=== PATIENT | female | born 1960 | race Caucasian/White ===

== ENCOUNTER 2017-03-09 08:59 | Emergency (ER) | payer BC ==
[2017-03-09 09:40] VITALS: BP 105/63
--- NOTE | 2017-03-09 09:51 | UC ---
Respiratory Complaint HPI <Gali Fermin - Last Filed: 03/09/17 09:53> - HPI Summary HPI Summary: worsening cough over the past week---has wosening buring in chest with cough and cough that is not resolving with Robitussin and increase fluids - History of Current Complaint Hx Obtained From: Patient Hx Last Menstrual Period: 3 years ago. ?: No Onset/Duration: Gradual Onset, Lasting Days - 7, Worse Since - getting worse daily Timing: Constant Severity Initially: Mild Severity Currently: Moderate Pain Intensity: 6 Pain Scale Used: 0-10 Numeric Character: Cough: Nonproductive Aggravating Factors: Nothing Alleviating Factors: Nothing Associated Signs And Symptoms: Positive: Pleuritic Chest Pain, URI, Nasal Congestion, Sinus Discomfort <Nichole Hussein - Last Filed: 03/09/17 10:01> - History of Current Complaint Chief Complaint: UCRespiratory Stated Complaint: SORE THROAT COUGH CONGESTION Time Seen by Provider: 03/09/17 09:37 - Allergies/Home Medications Allergies/Adverse Reactions: Allergies Allergy/AdvReac Type Severity Reaction Status Date / Time Penicillins [PCN] Allergy Severe Rash/fever Verified 03/09/17 09:06 PMH/Surg Hx/FS Hx/Imm Hx Previously Healthy: No Endocrine History: Hypothyroidism Other History Of: Negative For: HIV, Hepatitis B, Hepatitis C - Surgical History Surgical History: Yes Surgery Procedure, Year, and Place: - Family History Known Family History: Positive: None, Diabetes - Social History Occupation: Employed Full-time Lives: With Family Alcohol Use: Rare Substance Use Type: None Smoking Status (MU): Never Smoked Tobacco - Immunization History Most Recent Influenza Vaccination: n/a Most Recent Tetanus Shot: <5 yrs Most Recent Pneumonia Vaccination: n/a <Nichole Hussein - Last Filed: 03/09/17 10:01> Review of Systems All Other Systems Reviewed And Are Negative: Yes <Gali Fermin - Last Filed: 03/09/17 09:53> Constitutional: Fever, Chills, Fatigue Skin: Negative Eyes: Negative ENT: Sore Throat, Nasal Discharge, Sinus Congestion, Sinus Pain/Tenderness Respiratory: Cough Cardiovascular: Negative Gastrointestinal: Negative Genitourinary: Negative Motor: Negative Neurovascular: Negative Musculoskeletal: Negative Neurological: Negative Psychological: Negative Is Patient Immunocompromised?: No All Other Systems Reviewed And Are Negative: Yes <Nichole Hussein - Last Filed: 03/09/17 10:01> Physical Exam Triage Information Reviewed: Yes Vital Signs: Initial Vital Signs Temp 99 F 03/09/17 09:07 Pulse 69 03/09/17 09:07 Resp 16 03/09/17 09:07 BP 105/63 03/09/17 09:07 Pulse Ox 100 03/09/17 09:07 <Gali Fermin - Last Filed: 03/09/17 09:53> Triage Information Reviewed: Yes Appearance: Well-Nourished, Ill-Appearing, Pain Distress Vital Signs: Initial Vital Signs Temp 99 F 03/09/17 09:07 Pulse 69 03/09/17 09:07 Resp 16 03/09/17 09:07 BP 105/63 03/09/17 09:07 Pulse Ox 100 03/09/17 09:07 Vital Signs Reviewed: Yes Eye Exam: Normal Eyes: Positive: Conjunctiva Clear ENT Exam: Normal ENT: Positive: Normal ENT inspection, Pharyngeal erythema, TMs normal. Negative : Nasal congestion, TM bulging, Tonsillar swelling, Tonsillar exudate, Trismus, Muffled voice, Hoarse voice, Dental tenderness, Sinus tenderness, Uvula midline Dental Exam: Normal Neck exam: Normal Neck: Positive: Supple, Nontender, No Lymphadenopathy Respiratory Exam: Normal Respiratory: Positive: Chest non-tender, Lungs clear, Normal breath sounds, No respiratory distress, No accessory muscle use Cardiovascular Exam: Normal Cardiovascular: Positive: RRR, No Murmur, Pulses Normal, Brisk Capillary Refill Musculoskeletal Exam: Normal Musculoskeletal: Positive: Strength Intact, ROM Intact, No Edema Neurological Exam: Normal Neurological: Positive: Alert, Muscle Tone Normal Psychological Exam: Normal Skin Exam: Normal <Nichole Hussein - Last Filed: 03/09/17 10:01> UC Diagnostic Evaluation - Laboratory O2 Sat by Pulse Oximetry: 100 Diagnostic Studies Comment: RST (-) <Nichole Hussein - Last Filed: 03/09/17 10:01> Respiratory Course/Dx - Course Course Of Treatment: Zithromax, Robitussin and Codiene, Albuteol, increase fluids, follow with pcp prn - Differential Dx/Diagnosis Provider Diagnoses: Bronchitis with Bronchospastic cough <Nichole Hussein Last Filed: 03/09/17 10:01> Discharge <Gali Fermin - Last Filed: 03/09/17 09:53> <Nichole Hussein - Last Filed: 03/09/17 10:01> - Discharge Plan Condition: Stable Disposition: HOME Prescriptions: Albuterol HFA INHALER* [Ventolin HFA Inhaler*] 2 puff INH Q6H PRN #1 mdi PRN Reason: cough Azithromycin TAB* [Zithromax TAB (Z-MIGEL) 250 mg #6 tabs] 2 tab PO .TODAY, THEN 1 DAILY #1 migel Guaifenesin-Codeine [Guaiatussin AC] 5 ml PO Q6H PRN #60 ml MDD 20 ml PRN Reason: Cough Patient Education Materials: Acute Bronchitis (ED), Bronchospasm (ED) Forms: *Work Release Referrals: Jocelyn Escobedo MD [Primary Care Provider] - 1 Week Attestation Statement User Type: Provider - I was available for consult. This patient was seen by the CHAPARRITA. The patient was not presented to, seen by, or examined by me. -Dennyj <Gali Fermin - Last Filed: 03/09/17 09:53>
== END 2017-03-09 10:02 | disposition home or self-care (01) ==
LOC: UCEAST 08:59
DX: J40 Bronchitis, not specified as acute or chronic (principal); R05 Cough
CPT/HCPCS: 87651; 99212; G0463

== ENCOUNTER 2017-04-16 10:25 | Day surgery (SDC) | payer BC ==
[~2017-04-16 10:25] MED LIST: Buffered Lidocaine 0.9% SYRIN* 5 ML/SYR SYRINGE INTRADERM ONE; DiMENhydriNATE IV* 50 MG/ML VIAL IV PUSH PRN; Famotidine IV* 10 MG/ML 2 ML (20 mg) IV ONE; Morphine INJ* 2 MG/ML 1 ML CARPUJECT IV PRN; PROCHLORPERAZINE INJ 5 MG/ML 2 ML VIAL IV PRN; oxyCODONE/Acetamin 5/325 MG* TAB PO PRN
[2017-04-16] MEDS ORDERED: Famotidine IV* 10 MG/ML 2 ML (20 mg) ONE (11:14)
[2017-04-16] MEDS ORDERED: Clindamycin 900 MG IVPREMIX(* 900 MG/50 ML SDV IV ONE (11:14)
[2017-04-16] MEDS ORDERED: fentaNYL* 50 MCG/ML 2 ML VIAL (100 MCG VIAL) ONE ×2 (12:16→14:23)
[2017-04-16] MEDS ORDERED: KETAMINE HCL* 50 MG/ML 10 ML VIAL ONE (12:16)
[2017-04-16] MEDS ORDERED: Midazolam* 1 MG/ML 10 ML VIAL (10 MG) ONE (12:16)
[2017-04-16] MEDS ORDERED: Lidocaine 1% MPF wEPI 200,000* 30 ML SDV ONE (12:45)
[2017-04-16] MEDS ORDERED: Bupivacaine 0.25% SDV* 30 ML ONE (12:45)
[2017-04-16] MEDS ORDERED: Ketorolac INJ* 30 MG/ML 1 ML VIAL ONE (13:51)
[2017-04-16] MEDS ORDERED: Chloroprocaine 2%* 20 ML VIAL ONE (13:51)
[2017-04-16] MEDS ORDERED: oxyCODONE/Acetamin 5/325 MG* TAB ONE (14:23)
[2017-04-16] MEDS: fentaNYL* 50 MCG/ML 2 ML VIAL (100 MCG VIAL) IV PRN ×3 (14:24→14:44)
[2017-04-16 15:31] VITALS: BP 115/72
--- NOTE | 2017-04-17 06:29 | OP ---
DATE OF OPERATION: 04/16/17 [facility] DATE OF : 60 SURGEON: Karoline Myers MD. SPINNING FRAME CLEANER: YANDEL Santos. An trust manager assistant was needed for the entirety of the case to help with positioning, retraction, and was utilized throughout all portions of the case. ANESTHESIOLOGIST: Dr. Lovelace. ANESTHESIA: Spinal. PRE-OP DIAGNOSIS: Right knee medial and lateral meniscal tears. POST-OP DIAGNOSES: Right knee medial and lateral meniscal tears and tricompartmental arthritis and plica. OPERATIVE PROCEDURE: Right knee arthroscopy with partial lateral meniscectomy; partial medial meniscectomy; chondroplasty of the medial, lateral, and patellofemoral joints, and plica excision. COMPLICATIONS: None. ESTIMATED BLOOD LOSS: Minimal. INDICATIONS: Sharmin Marshall is a 57-year-old female who has had persistent meniscal type symptoms. She has continuously tried to rehab and most recently she damaged her lateral meniscus and had persistent pain and inability to get back to function. She has elected to proceed surgical treatment. Risks and benefits of surgery were discussed at length to include, but are not limited to , bleeding, infection, damage to nerves, vessels, and surrounding structures, wound nonhealing, persistent pain, need for further surgery, scarring, stiffness , incomplete relief of symptoms, risks of anesthesia, and risks of DVT. DESCRIPTION OF PROCEDURE: The patient was greeted in the preoperative area by the attending surgeon. Correct extremity was marked and consent was confirmed. The patient was brought back to the operating suite, where she was placed on the supine position on the operating room table. She then was set up and underwent spinal anesthesia, after which an unsterile tourniquet was placed high on the proximal thigh. The lateral post was positioned. The right leg was prepped and draped in the usual sterile fashion using a chlorhexidine soap, scrub, and alcohol wipe, and a final prep with ChloraPrep. After appropriate surgical pause indicating side, site, procedure, and administration of antibiotics, the knee was intra-articularly injected with 1% lidocaine with epi, after which a lateral portal was made using an 11-blade. The scope was introduced into the joint. Joint was examined. There were grade 1 to 2 changes of the patella with unstable fraying inferiorly. There was a large plica medially. The medial and lateral gutters were intact, difficult to mobilize due to the fat pad and plica. The trochlea was examined and had grade 2 changes. The scope was brought into the medial compartment where there were grade 2 changes with unstable fraying. The anteromedial portal was made in an outside-in fashion. Shaver and electrocautery devices were used to remove the abundant fat pad and plica anteromedially and anteriorly. The ACL and PCL were intact. The medial compartment had grade 2 changes to the medial femoral condyle. Grade 1 changes to the medial plateau. There was an unstable root of the medial meniscus tear over the unstable flap that was debrided back using the jas and biters that extended into the posteromedial rim. The unstable flaps were removed and debrided back. The knee was then placed in a figure-of- four position and there was meniscal fraying and meniscal tearing, particularly directly laterally and posteriorly at the root. This was debrided back using jas and biters. There were grade 2 and 3 changes of the lateral plateau and grade 1 to 2 changes of the femur. The shaver was used to debride back the unstable flap. Final images were obtained. The menisci were checked again to make sure there are no unstable flaps. The knee was thoroughly lavaged. The wounds were copiously irrigated with sterile saline. The portals were closed with 3-0 nylon. The knee was intra-articularly injected with 0.25% Marcaine plain. Sterile dressings were applied. Cryo/Cuff was applied. She was awoken from anesthesia and transferred to PACU in stable condition. POSTOPERATIVE PLAN: She will be on crutches for 3 to 5 days. She will be discharged on pain medication. DVT prophylaxis was considered, but deferred due to no previous personal or family history. I will see the patient back in 10 to 14 days. [id number]/[facility] #: [id number] RYNE
== END 2017-04-16 16:09 | disposition home or self-care (01) ==
LOC: OR 10:25
PROVIDERS: ATTEND Orthopaedic Surgery
DX: S83.281D Other tear of lateral meniscus, current injury, right knee, subsequent encounter (principal); S83.241D Other tear of medial meniscus, current injury, right knee, subsequent encounter; X50.0XXD Overexertion from strenuous movement or load, subsequent encounter; Y92.9 Unspecified place or not applicable; M67.51 Plica syndrome, right knee; M17.11 Unilateral primary osteoarthritis, right knee; E03.9 Hypothyroidism, unspecified; F41.8 Other specified anxiety disorders
CPT/HCPCS: 62323; A9270-GY; J1885; J2001; J2250; J2400; J3010

== ENCOUNTER 2017-11-07 09:36 | Emergency (ER) | payer BC ==
[2017-11-07 09:48] VITALS: BP 101/65
[2017-11-07] MEDS ORDERED: Tetan/Diph/Pertus SYR(Tdap)* 0.5 ML SYR(BOOSTRIX) use SYR IM ONE (11:24)
--- NOTE | 2017-11-07 11:41 | UC ---
Bite Injury/Animal HPI - HPI Summary HPI Summary: WAS PETTING NEIGHBORS CAT YESTERDAY EVENING WHEN IT BIT HER RIGHT WRIST. CAT IS UTD VACCINATIONS. PT DOES NOT KNOW DATE OF HER LAST TETANUS BOOSTER. HAS REDNESS AT BITE SITE BUT PAIN IS MINIMAL AND PT HAS FULL ROM. - History of Current Complaint Chief Complaint: UCBiteInjury Stated Complaint: CAT BITE Time Seen by Provider: 11/07/17 11:18 Hx Obtained From: Patient Hx Last Menstrual Period: 3 years ago. Severity Currently: Mild Severity Initially: Mild Pain Intensity: 0 Pain Scale Used: 0-10 Numeric Onset/Duration: Sudden Onset, Lasting Hours, Still Present Type of Bite: Pet Has Animal Been Immunized?: Yes Character: Puncture Aggravating Factor(s): Nothing Alleviating Factor(s): Nothing Associated Signs And Symptoms: Positive: Erythema Hx of Bite: Provoked by: - PETTING THE CAT - Allergies/Home Medications Allergies/Adverse Reactions: Allergies Allergy/AdvReac Type Severity Reaction Status Date / Time Penicillins Allergy Rash Verified 11/07/17 09:49 PMH/Surg Hx/FS Hx/Imm Hx Endocrine History: Hypothyroidism Other History Of: Negative For: HIV, Hepatitis B, Hepatitis C - Surgical History Surgical History: Yes Surgery Procedure, Year, and Place: , RT FOOT PANTAR FASCIOTOMY AND TARSAL TUNNEL 2 1/2 YRS AGO - Family History Known Family History: Positive: Diabetes Negative: Hypertension - Social History Alcohol Use: Rare Substance Use Type: None Smoking Status (MU): Never Smoked Tobacco - Immunization History Most Recent Influenza Vaccination: n/a Most Recent Tetanus Shot: <5 yrs Most Recent Pneumonia Vaccination: n/a Review of Systems Constitutional: Negative Skin: Other - CAT BITE RIGHT WRIST Respiratory: Negative Cardiovascular: Negative Gastrointestinal: Negative Musculoskeletal: Negative All Other Systems Reviewed And Are Negative: Yes Physical Exam Triage Information Reviewed: Yes Appearance: Well-Appearing, No Pain Distress, Well-Nourished Vital Signs: Initial Vital Signs Temp 98 F 11/07/17 09:46 Pulse 59 11/07/17 09:46 Resp 16 11/07/17 09:46 BP 101/65 11/07/17 09:46 Pulse Ox 100 11/07/17 09:46 Vital Signs Reviewed: Yes Eyes: Positive: Conjunctiva Clear ENT: Positive: Hearing grossly normal Neck: Positive: Supple Respiratory: Positive: No respiratory distress, No accessory muscle use Cardiovascular: Positive: Pulses Normal Abdomen Description: Positive: Soft Musculoskeletal: Positive: ROM Intact, No Edema, Other: - NO SWELLING OR TENDERNESS RIGHT WRIST Neurological: Positive: Alert Psychological: Positive: Age Appropriate Behavior Skin: Positive: Other - 2 PUNCTURE WOUNDS VOLAR SURFACE RIGHT WRIST WITH SURROUNDING ERYTHEMA. NON TENDER Bite Injury Course/Dx - Differential Dx/Diagnosis Provider Diagnoses: 1. INFECTED CAT BITE RIGHT WRIST. 2. TDAP BOOSTER Discharge - Sign-Out/Discharge Documenting (check all that apply): Patient Departure - Discharge Plan Condition: Stable Disposition: HOME Prescriptions: Doxycycline Monohydrate 1 cap PO BID #20 cap Fluconazole 150 MG (NF) [Diflucan 150 mg (NF)] 150 mg PO ONCE #2 tab Patient Education Materials: Animal Bite (ED), Cellulitis (ED) Referrals: Jocelyn Escobedo MD [Primary Care Provider] - If Needed Additional Instructions: SEEK FOLLOW-UP IF YOU DEVELOP SPREADING REDNESS OF THE SKIN, PURULENT DRAINAGE, FEVER, INCREASED PAIN OR ANY OTHER CONCERNING SYMPTOMS. TETANUS IMMUNIZATION GIVEN (TDAP): You have been given an immunization against tetanus. Please record this in your records. In general, a booster is needed only once every 10 years. The tetanus shot protects against tetanus or "lockjaw," which is a complication of certain wound infections (the tetanus shot cannot protect against the actual infection). The immunization site may become warm and red due to local reaction. If this occurs, apply warm compresses and take aspirin or ibuprofen to reduce inflammation and discomfort. Return for evaluation if the reaction becomes severe. - Billing Disposition and Condition Condition: STABLE Disposition: Home
== END 2017-11-07 11:41 | disposition home or self-care (01) ==
LOC: UCEAST 09:36
DX: S60.871A Other superficial bite of right wrist, initial encounter (principal); L08.9 Local infection of the skin and subcutaneous tissue, unspecified; W55.01XA Bitten by cat, initial encounter; Y93.9 Activity, unspecified; Y99.9 Unspecified external cause status
CPT/HCPCS: 90715; 96372; 99212; G0463

== ENCOUNTER 2018-10-18 14:01 | Emergency (ER) | payer BC ==
[2018-10-18 14:13] VITALS: BP 97/66
--- NOTE | 2018-10-18 14:13 | UC ---
Skin Complaint HPI - HPI Summary HPI Summary: 58 yo female presents with poison oxana exposure. She tells me that 1 week ago she developed a blister rash on her left hand after being exposed to poison oxana. Since that time she has been having small clusters of red, itchy, and blister-like areas pop up randomly on her body. She has been applying calamine lotion with mild relief. Denies drainage, bleeding, open wound, fever, or chills. - History of Current Complaint Time Seen by Provider: 10/18/18 14:12 Stated Complaint: RASH Hx Obtained From: Patient Hx Last Menstrual Period: 3 years ago. Onset/Duration: Gradual Onset Current Severity: None - Allergy/Home Medications Allergies/Adverse Reactions: Allergies Allergy/AdvReac Type Severity Reaction Status Date / Time Penicillins Allergy Rash Verified 10/18/18 14:13 PMH/Surg Hx/FS Hx/Imm Hx Endocrine History: Hypothyroidism Psychological History: Anxiety, Depression Other History Of: Negative For: HIV, Hepatitis B, Hepatitis C - Surgical History Surgical History: Yes Surgery Procedure, Year, and Place: , RT FOOT PANTAR FASCIOTOMY AND TARSAL TUNNEL 2 1/2 YRS AGO - Family History Known Family History: Positive: Diabetes Negative: Hypertension - Social History Occupation: Employed Full-time Lives: With Family Alcohol Use: Rare Substance Use Type: None Smoking Status (MU): Never Smoked Tobacco - Immunization History Most Recent Influenza Vaccination: n/a Most Recent Tetanus Shot: <5 yrs Most Recent Pneumonia Vaccination: n/a Review of Systems All Other Systems Reviewed And Are Negative: Yes Constitutional: Positive: Negative Skin: Positive: Rash Respiratory: Positive: Negative Cardiovascular: Positive: Negative Gastrointestinal: Positive: Negative Neurovascular: Positive: Negative Neurological: Positive: Negative Psychological: Positive: Negative Physical Exam - Summary Physical Exam Summary: GENERAL: NAD. WDWN. No pain distress. SKIN: Left midaxillary with cluster of mildly erythematous blister-like lesions that are itchy. NTTP. Similar appearing lesions on abdomen and b/l thighs. No open wounds, drainage, >5mm blisters, or streaking. NECK: Supple. Nontender. No lymphadenopathy. CHEST: No accessory muscle use. Breathing comfortably and in no distress. CV: Pulses intact. Cap refill <2seconds NEURO: Alert. PSYCH: Age appropriate behavior. Triage Information Reviewed: Yes Vital Signs: Vital Signs: Temp Pulse Resp BP Pulse Ox 98 F 65 16 97/66 98 10/18/18 14:11 10/18/18 14:11 10/18/18 14:11 10/18/18 14:11 10/18/18 14:11 Vital Signs Reviewed: Yes Course/Dx - Course Course Of Treatment: Suspect histamine reaction vs poison oxana reaction. Will place her on a taper of prednisone for 1 week along with kenalog cream. - Diagnoses Provider Diagnosis: Poison oxana Discharge - Sign-Out/Discharge Documenting (check all that apply): Patient Departure All imaging exams completed and their final reports reviewed: No Studies - Discharge Plan Condition: Stable Disposition: HOME Prescriptions: predniSONE TAB* [Deltasone 20 MG TAB*] 60 mg PO DAILY #15 tab Triamcinolone 0.1% CREAM (NF) [Kenalog 0.1% Cream (NF)] 1 applic TOPICAL BID #1 tube Patient Education Materials: Poison Oxana (ED) Referrals: No Primary Care Phys,NOPCP [Primary Care Provider] - Additional Instructions: If you develop a fever, shortness of breath, chest pain, new or worsening symptoms - please call your PCP or go to the ED immediately. - Billing Disposition and Condition Condition: STABLE Disposition: Home - Attestation Statements Provider Attestation: I was available for consult. This patient was seen by the CHAPARRITA. The patient was not presented to , seen by or examined by fl -Vero Knox MD
== END 2018-10-18 14:38 | disposition home or self-care (01) ==
LOC: UCEAST 14:01
DX: L23.7 Allergic contact dermatitis due to plants, except food (principal); E03.9 Hypothyroidism, unspecified; F41.9 Anxiety disorder, unspecified; F32.9 Major depressive disorder, single episode, unspecified; Z88.0 Allergy status to penicillin
CPT/HCPCS: 99212; G0463